=== PATIENT | male | born 1955 | race Caucasian/White ===

== ENCOUNTER → 2023-05-18 10:41 | Outpatient (REF) | payer MEDICARE, SELFPAY | LOC: HWRAD 10:41 | PROVIDERS: ATTENDING PHYSICIAN Family Medicine | DX: M19.042 Primary osteoarthritis, left hand (principal) | CPT/HCPCS: 73110; 73130 ==

== ENCOUNTER → 2023-07-26 07:19 | Outpatient (REF) | payer MEDICARE, SELFPAY | LOC: MRI 3T 07:19 | PROVIDERS: ATTENDING PHYSICIAN Student in an Organized Health Care Education/Training Program; FAMILY PHYSICIAN Family Medicine | DX: M25.551 Pain in right hip (principal) | CPT/HCPCS: 73721 ==

== ENCOUNTER → 2023-10-07 10:08 | Outpatient (REF) | payer MEDICARE, SELFPAY | LOC: HWRCS 10:08 | PROVIDERS: ATTENDING PHYSICIAN Internal Medicine Cardiovascular Disease; FAMILY PHYSICIAN Family Medicine | DX: I35.1 Nonrheumatic aortic (valve) insufficiency (principal) | CPT/HCPCS: 93306 ==

== ENCOUNTER 2023-12-15 08:08 | Day surgery (SDC) | payer MEDICARE, SELFPAY ==
[2023-12-15] VITALS (9 sets, daily range): BP systolic 120–163; BP diastolic 76–89; BMI 31.4
--- NOTE | 2023-12-15 08:18 | ITS.CL.CATH ---
Licensed Reactor Operator - Catheterization
Cardiac Catheterization
Procedure Report:
LEFT HEART CATHETERIZATION
Date of Procedure: December 15, 2023
Referring: Mary Lu PA-C, Umesh Huddleston
PROCEDURES:
1. Left heart catheterization, coronary angiogram.
2. Ultrasound-guided access
INDICATION: Kevin is a 68-year-old gentleman with past medical history of hypertension, hyperlipidemia, exercise-induced asthma, paroxysmal supraventricular tachycardia, history of basal cell carcinoma of skin, severe aortic stenosis who is being
referred for a left heart catheterization coronary angiogram to rule out obstructive CAD as part of workup for AVR. He has been recently complaining of episodes of palpitations and significant dyspnea on exertion along with occasional chest
discomfort. Most recent echocardiogram from October 07, 2023 showed LVEF of 60 to 65%, severe aortic stenosis with mean transaortic gradient of 46 mmHg, aortic valve area 1.0, moderate AI and PA pressure of 45 mmHg.
ACCESS: Right radial artery, 6 Uzbek sheath, under ultrasound guidance.
We briefly attempted to perform a right heart catheterization by wiring the right brachial IV in place however given wire would not advance smoothly, this access was aborted.
HEMODYNAMICS : (mmHg)
AO (s/d) : 150/78
LV (s/d) : 183/15
LVEDP : 28
Mean transaortic gradient invasively was 40 mmHg, consistent with severe aortic stenosis.
CORONARY FINDINGS
DOMINANCE: Right
LEFT MAIN: The left main artery is a large-caliber vessel which gives rise to the left anterior descending artery and the left circumflex artery. There is minimal luminal irregularities.
LEFT ANTERIOR DESCENDING: The left anterior descending artery is a small to medium caliber vessel which gives rise to 2 major diagonal branches as it courses through the anterior interventricular groove towards the apex. There is minimal luminal
irregularities.
CIRCUMFLEX: The left circumflex artery is a medium caliber vessel which gives rise to 2 major obtuse marginal branches. There is minimal luminal irregularities.
RIGHT CORONARY ARTERY: The right coronary artery is a large-caliber, dominant vessel which gives rise to the right posterior descending artery and the right posterolateral system. There is minimal luminal irregularities.
SEDATION:51 minutes of procedural sedation was utilized. An independent medical registrar was present to assist with and help manage the patient's level of consciousness and physiologic status.
RADIATION SUMMARY: Fluoro Time (min): 8.2, Dose (mGy): 666.21, DAP (Gy.cm2) : 47.2
Closure Device: Vascular band over right radial artery, 10 cc of air.
CONCLUSIONS
1. No obstructive coronary artery disease.
2. Severe symptomatic aortic stenosis with invasive mean transaortic gradient of 40 mmHg.
3. Significantly elevated LVEDP at 28 mmHg.
RECOMMENDATIONS
1. Wean radial protocol.
2. Aggressive management of cardiovascular risk factors.
3. Continue further workup including a CT angiogram of chest, abdomen and pelvis per TAVR protocol and CT surgery consult with plan for a heart team discussion at the next structural heart meeting once all the workup is completed to discuss role of
TAVR versus SAVR.
Copy to: Mary Lu PA-C, Umesh Huddleston
Loyda Perdomo MD, [facility], [facility]
[2023-12-15] MEDS: NSS 290 ML IV (09:51)
[2023-12-15] MEDS: LOW STRENGTH ASPIRIN 324 MG PO (09:52)
[2023-12-15] MEDS: LASIX 20 MG IV (14:29)
--- NOTE | 2023-12-15 15:18 | CONSULT.STRU ---
Consultation
-
Date/Time Consultation Requested: 12/15/2023
Date/Time Consultation Performed: 12/15/2023
Requesting Provider: Loyda Perdomo MD
Performing Provider: DEANGELO Shepherd
Reason for Consultation: Aortic stenosis, evaluate TAVR vs SAVR
Patient History
Physicians
Family Physician: Ana Lilia Casper
Outpatient Electron Beam Welder Setter: Umesh Huddleston
Primary Electron Beam Welder Setter: Umesh Huddleston
History of Present Illness
Patient is a very pleasant 68yo male with known history of aortic stenosis. He recently was seen at [place] in the ER for evaluation of tachycardia. He states they were not convinced he was not in afib based on his Apple watch so started him on
Eliquis. He states he has not felt any palpitations since but does have a history of them in the past. He does state he has had intermittent chest discomfort since the episode. It comes and goes with no particular aggravating or relieving factors.
It does not radiate to arm or jaw. No SOB with it. He denies peripheral edema, PND, orthopnea, lightheadedness. He does describe some WANG with mild activity..
Reviewed the pathophysiology of aortic stenosis with the patient. Explained the treatment options of SAVR and TAVR. Explained the TAVR evaluation process including follow up BMP, CT TAVR scan, CT surgery consult and Heart Team discussion. Provided
with script for BMP next week, script and appointment for CT TAVR, Consult appointment with Dr. Eric and a copy of the TAVR education booklet with contact information. Allowed for and answered questions.
Past Medical History
Past Medical History: Arrhythmias (PSVT), Asthma ( mild intermittent, no recent use of rescue inhaler), Atrial Fib (unclear, recently diagnosed and started on Eliquis), Cancer (h/o basal cell), WANG, GERD, Hypercholesterolemia, Valvular Disease
(Severe , moderate AI, Mild TR, mild MR) and Other (DDD/DJD lumbar spine)
Past Surgical History
Past Surgical History: Other (lipoma removed left flank, left knee arthroscopic surgery, Right great toe surgery, excision of basal cell cancer)
Dental History
Regular dental care
Family History
Mother: at Age (60yo, melanoma)
Father: at Age (46yo, cancer)
Social History
Alcohol: Occasional
Drug: None
Tobacco: Non-Smoker
Personal:
Living: With Spouse
Employment: Retired (research environmental scientist at [employer]
Allergies
Allergy/AdvReac Type Severity Reaction Status Date / Time
No Known Allergies Allergy Verified 12/15/23 09:07
Home Medications
�Medication �Instructions �Recorded �Confirmed �Type
apixaban 5 mg tablet (Eliquis) 5 mg PO BID 12/15/23 12/15/23 History
cyclosporine 0.05 % eye drops 1 drp ophthalmic (eye) Q12H 12/15/23 12/15/23 History
(Restasis MultiDose)
fenofibrate micronized 134 mg 134 mg PO DAILY 12/15/23 12/15/23 History
capsule
furosemide 20 mg tablet (Lasix) 20 mg PO DAILY #30 tabs 12/15/23 Rx
metoprolol succinate 25 mg 25 mg PO DAILY 12/15/23 12/15/23 History
tablet,extended release 24 hr
rosuvastatin 5 mg tablet 5 mg PO DAILY 12/15/23 12/15/23 History
STS%
STS %: 0.88%
Review of Systems
-
History Source: Patient
General: Reports No Symptoms
HEENT: Reports No Symptoms
Respiratory: Reports WANG and Asthma (history of but no recent issues)
Cardiac: Reports Chest Pain (Since November- dull ache, non-radiating, not activity related) and Palpitations; Denies Nausea, Vomiting, Diaphoresis or Edema
Abdomen/GI: Reports Reflux; Denies Abdominal Pain, Nausea, Vomiting or Diarrhea
: Reports No Symptoms
Musculoskeletal: Reports Other (Bulgin discs in his back that cause right leg pain)
Skin: Reports No Symptoms
Neurological: Reports No Symptoms; Denies CVA, TIA, Headaches or Syncope
Vascular: Reports No Symptoms
Physical Exam
Vital Signs
Temp 98.1 F 12/15/23 09:00
Temp route: Oral 12/15/23 09:00
Pulse 61 12/15/23 14:53
Resp Rate 22 12/15/23 14:53
Blood pressure 151/80 12/15/23 14:53
Blood pressure extremity used: Left upper arm 12/15/23 14:45
Position: Sitting 12/15/23 14:45
MAP (cuff-Todd Monitor) 100 12/15/23 14:53
SaO2 97 12/15/23 14:53
Oxygen Mode of Delivery Room air 12/15/23 14:45
Can the patient verbally communicate their pain? Yes 12/15/23 14:45
Actual Weight 96.5 kg 12/15/23 08:18
Body Mass Index (BMI) 31.4 12/15/23 08:18
Labs
12/07/2023:
H/H: 15.8/47.8
BUN/Creat: 26/03.18
GFR: 67
Diagnostic Studies
Echocardiogram 10/07/2023:
CONCLUSIONS
Normal left ventricular size and systolic function. Mild concentric left
ventricular hypertrophy. No regional wall motion abnormalities are seen. LV
ejection fraction is 60-65% by Plummer's method of discs. Normal diastolic
function.
Normal right ventricular size and function.
Severe aortic stenosis with peak/mean gradients across the aortic valve of
82/46 mmHg, respectively. The aortic valve by the Continuity equation is
calculated at 1.0 cm2.
Moderate, eccentric aortic regurgitation.
Mild tricuspid regurgitation. Estimated pulmonary artery pressure of 45 mmHg
assuming a right atrial pressure of 3 mmHg.
Compared to prior study dated 03/04/2022, aortic stenosis is now severe,
previous peak/mean aortic valve gradients were previously 49/26 mmHg.
Indications:
Nonrheumatic aortic (valve) stenosis
Rhythm: Sinus with occasional PVCs
Portable Study: No
Technical Quality: Good
Contrast: None
BP: 138 / 80
PROCEDURE
A complete Transthoracic Echocardiogram was performed utilizing two-dimensional
evaluation with color flow and spectral Doppler analysis.
FINDINGS
Left Ventricle
Normal left ventricular size and systolic function. Mild concentric left
ventricular hypertrophy. No regional wall motion abnormalities are seen. LV
ejection fraction is 60-65% by Plummer's method of discs. Normal diastolic
function.
Right Ventricle
Normal right ventricular size and function.
Left Atrium
Indexed LA volume is within top normal range (15-34 mL/m2).
Right Atrium
Normal right atrial size.
Mitral Valve
Mitral valve opens normally with mild mitral regurgitation.
Aortic Valve
Calcified aortic valve with restricted leaflet excursion. Severe aortic
stenosis with peak/mean gradients across the aortic valve of 82/46 mmHg,
respectively. The aortic valve by the Continuity equation is calculated at 1.0
eccentric aortic regurgitation.
Tricuspid Valve
Tricuspid valve opens normally with mild tricuspid regurgitation. Estimated
pulmonary artery pressure of 45 mmHg assuming a right atrial pressure of 3
mmHg.
Pulmonic Valve
Pulmonic valve opens normally with trace pulmonic regurgitation.
Pericardium\\Pleura
No pericardial or pleural effusions seen.
Aorta
Normal size aortic root and normal size aorta. The aortic arch is normal in
caliber.
Other Finding
The IVC is of normal size and demonstrates normal respiratory variation.
Interatrial septum is intact with no evidence of shunting by color flow
Doppler.
MEASUREMENTS (Male / Female) Normal Values
2D ECHO
LV Diastolic Diameter PLAX 5.1 cm 4.2 - 5.9 / 3.9 - 5.3 cm
LV Systolic Diameter PLAX 3.3 cm
IVS Diastolic Thickness 1.2 cm 0.6 - 1.0 / 0.6 - 0.9 cm
LVPW Diastolic Thickness 1.1 cm 0.6 - 1.0 / 0.6 - 0.9 cm
LV Relative Wall Thickness 0.5
LVOT Diameter 2.1 cm
LV Ejection Fraction MOD BP 64.1 % >= 55 %
LV Stroke Volume MOD BP 75.0 cm3
LV Cardiac Index MOD BP 2360.9 cm3/min
LV Stroke Volume MOD 4C 61.0 cm3
LV Stroke Volume 4C AL 63.8 cm3
LV Stroke Volume MOD 2C 83.0 cm3
LV Stroke Volume 2C AL 86.4 cm3
LA Area 4C View 20.8 cm2 <= 20 cm2
LA Length 4C 5.6 cm
LA Volume 62.0 cm3 18 - 58 / 22 - 52 cm3
LA Volume Index 34.9 cm3/m2 16 - 34 cm3/m2
Ascending Aorta Diameter 3.4 cm
Aortic Arch Diameter 2.9 cm
DOPPLER
AV Peak Velocity 403.0 cm/s
AV Peak Gradient 65.0 mmHg
AV Mean Gradient 33.0 mmHg
AV Velocity Time Integral 85.1 cm
AI Peak Velocity 336.3 cm/s
AI Peak Gradient 45.2 mmHg
AI Pressure Half Time 506.3 ms
LVOT Peak Velocity 147.0 cm/s
LVOT Peak Gradient 8.6 mmHg
LVOT Velocity Time Integral 29.5 cm
LVOT Stroke Volume 102.2 cm3
LVOT Stroke Volume Index 46.6 ml/m2 empty
LVOT Cardiac Index 3216.4 cm3/min\\m2
AV Area Cont Eq vti 1.2 cm2
AV Area Cont Eq pk 1.3 cm2
MR Peak Velocity 647.0 cm/s
MR Peak Gradient 167.4 mmHg
Mitral E Point Velocity 91.3 cm/s
Mitral A Point Velocity 59.2 cm/s
Mitral E to A Ratio 1.5
LV E' Lateral Velocity 10.4 cm/s
Mitral E to LV E' Lateral Ratio 8.8
LV E' Septal Velocity 9.5 cm/s
Mitral E to LV E' Septal Ratio 9.7
Pulmonary Vein S/D Ratio 1.1
TR Peak Velocity 296.0 cm/s
TR Peak Gradient 35.0 mmHg
PV Peak Velocity 208.0 cm/s
PV Peak Gradient 17.3 mmHg
Cardiac Catheterization 12/15/2023:
No significant coronary artery disease
Exam
General: Well Developed, Well Nourished, No Apparent Distress and Comfortable
HEENT: Normocephalic, Moist Mucous Membranes, PERRLA and EOMI
Neck: Trachea Midline
Respiratory: Clear; Negative Wheezes, Crackles or Rhonchi
Cardiac: S1/S2, Regular Rhythm and Murmur (Grade I/)
GI: Soft, Non Tender, Non Distended and Normal Bowel Sounds
Rectal: Deferred by Provider
Skin: Warm and Dry
Neuro: AO x 3, No Motor Deficits and Nonfocal/Grossly Intact
Extremities: Pulses (palpable pedal pulses); Negative Lower Level Edema
Psych: Calm
Assessment / Plan
-
Procedure Type:�Isolated AVR
PERIOPERATIVE OUTCOME ESTIMATE %
Operative Mortality 0.888%
Morbidity & Mortality 8.68%
Stroke 0.675%
Renal Failure 1.73%
Reoperation 3.35%
Prolonged Ventilation 3.66%
Deep Sternal Wound Infection 0.062%
Long Hospital Stay (>14 days) 3.69%
Short Hospital Stay (<6 days)* 45.6%
Severe Aortic stenosis:
����������� Continue evaluation for TAVR vs SAVR
����������� BMP next week at [facility]
����������� CT TAVR scan 12/27 929 at
����������� CT surgery consult with Dr. Eric 01/05/2024929
����������� Heart team discussion at [facility]
Dental Clearance
Data Reviewed
-
EKG: Report Reviewed by me (no conduction issue noted)
Publishing Manager: Discussed with Physician
Echo: Report Reviewed by me
Labs: Labs Reviewed by me
Old Records: Reviewed (Cardiology office notes)
Total Time Spent with Patient (in minutes): 35
== END 2023-12-15 16:53 | disposition home or self-care (01) ==
LOC: CATH 08:08
PROVIDERS: ATTENDING PHYSICIAN Internal Medicine Interventional Cardiology; FAMILY PHYSICIAN Family Medicine; OTHER PHYSICIAN Internal Medicine Cardiovascular Disease
DX: I08.2 Rheumatic disorders of both aortic and tricuspid valves (principal); I47.10 Supraventricular tachycardia, unspecified; R06.09 Other forms of dyspnea; R07.89 Other chest pain; I10 Essential (primary) hypertension; E78.00 Pure hypercholesterolemia, unspecified; K21.9 Gastro-esophageal reflux disease without esophagitis; Z85.828 Personal history of other malignant neoplasm of skin; Z79.01 Long term (current) use of anticoagulants
CPT/HCPCS: 99152; 99153; C1894; 93458; Q9967

== ENCOUNTER → 2023-12-28 09:12 | Outpatient (REF) | payer OTHER, SELFPAY | LOC: RAD 09:12 | PROVIDERS: ATTENDING PHYSICIAN Nurse Practitioner Adult Health; FAMILY PHYSICIAN Family Medicine | DX: I35.0 Nonrheumatic aortic (valve) stenosis (principal) | CPT/HCPCS: 74174; 75572; Q9967 ==

== ENCOUNTER 2024-02-17 09:26 | Inpatient (IN) | payer OTHER, SELFPAY ==
[2024-02-09 08:20] VITALS: BMI 30.1
[2024-02-09 09:00] LABS: Urine Albumin Negative (Neg - Trace); Urine Bilirubin Negative (Negative); Urine Character Clear (Clear); Urine Color Yellow; Urine Glucose Negative (Negative); Urine Ketone Negative (Negative); Urine Leukocyte Negative (Negative); Urine Nitrite Negative (Negative); Urine Occult Blood Negative (Negative); Urine Urobilinogen Negative (Neg - 1+)
[2024-02-09 09:07] LABS: % Basophils 0.7 % (0-2); % Eosinophils 3.1 % (0-6); % Immature Granulocytes 0.1 % (0-0.5); % Lymphocytes 26.4 % (20.5-51.1); % Monocytes 7.5 % (1.7-9.3); % Neutrophils 62.2 % (42.2-75.2); Absolute Basophils 0.1 10^3/uL (0-0.2); Absolute Eosinophils 0.2 10^3/uL (0-0.7); Absolute Lymphocytes 1.8 10^3/uL (1.2-3.4); Absolute Monocytes 0.5 10^3/uL (0.1-0.6); Absolute Neutrophils 4.2 10^3/uL (1.4-6.5); Hemoglobin 15.5 g/dL (13.0-18.0); Mean Corp Hgb Conc. 35.2 g/dL (33.0-37.0); Mean Corpuscular Hgb 29.7 pg (27.0-31.0); Mean Corpuscular Volume 84.3 fL (80.0-94.0); Mean Platelet Volume 10.5 fL (7.4-10.4); Nucleated Red Blood Cells % 0 % (-); Platelet Count 223 10^3/uL (130-400); Red Blood Cell Count 5.22 10^6/uL (4.70-6.10); Red Cell Dist. Width 12.6 % (11.5-14.5); White Blood Cell Count 6.8 10^3/uL (4.8-10.8)
[2024-02-09 09:12] LABS: INR 0.97; PT 13.4 Sec (11.4-14.6)
[2024-02-09 09:13] LABS: APTT 30.3 Sec (23.4-35.0)
--- NOTE | 2024-02-09 10:02 | HPS.HSE ---
Family Physician
-
Family Physician: Ana Lilia Casper
Communications Coordinator: Umesh Huddleston
Chief Complaint
-
Symptomatic Aortic stenosis/ Pre-operative history and physical
History of Present Illness
Kevin Leroy is a 68-year-old male with known progressive aortic valve stenosis. His most recent echocardiogram demonstrated a peak/mean gradient of 82/46 mmHg, respectively. NILESH was calculated to be 1.0 and peak velocity was just over 4.0 m/s.
His left heart catheterization revealed no obstructive coronary disease. An invasive mean gradient was 40 with an elevated LVEDP of 28 mmHg. From a symptomatology standpoint, he describes SOB with basic activities such as walking up stairs with
laundry and changing positions. In comparison to 1 year ago, he feels it has become more apparent. He also complains of intermittent, non-radiating midsternal chest pain. He cannot pinpoint any aggravating or relieving factors. It 'just comes and
goes'. He was also recently seen at a [place] facility for evaluation of tachycardia, at that time it was inconclusive whether he was in atrial fibrillation or not and so he was started on Eliquis for anticoagulation. He remains on the Eliquis still
now. He does state he has occasional palpitations. Denies PND, orthopnea or peripheral edema.
Reviewed with Mr. Leroy the risks of TAVR including bleeding, PPM and stroke. Confirmed he is a full rescue as stated in Dr. Eric's consult. Reviewed medications and he is instructed to take his last dose of Eliquis on 02/14/2024. He will then
take ASA 324mg on 02/14 and 81mg 02/15 and 02/16 prior to his 0930 arrival to the hospital. He is aware he will receive a phone call next to confirm arrival time. Allowed for and answered questions.
Medical History
Past Medical History
Past Medical History: Reports Arrhythmia (brief episode of afib document, PSVT), Asthma (mild-intermittant), GERD, Hypercholesterolemia, Valvular Disease (mild MR, mod AI, severe , mild TR) and Other (Neuropathy, back pain, DDD/DJD lumbar spine,
h/o BCC, IBS)
Past Surgical History: Reports Other (lipoma removed left flank, left knee arthroscopic surgery, Right great toe surgery, excision of basal cell cancer)
Social History
Tobacco: Non-smoker
Alcohol: Occasional
Drug: None
Personal:
Living: With Family
Employment: Retired ([employer] at [employer])
Family History
Family History: Cancer
Allergies / Home Medications
Allergies reflects when Allergies were last updated in [facility].
Home Medications with original date entered in [facility]
Allergy/Medication List:
Allergies:
NKDA
Medications:
Crestor 5mg daily
Eliquis 5mg BID
Fenofibrate micronized 134mg daily
furosemide 20mg daily
Toprol XL 25mg daily
MVI daily
Restasis 0.05% 1 drop in affected eye Q12H
Review of Systems
-
History Source: Patient
Constitutional: Denies Fever or Weight Gain
EENT: Reports No Symptoms
Respiratory: Reports Other (WANG)
Cardiac: Reports Chest Pain (occasionally, mid sternum, no aggravating or relieving factors, non-radiating, not associated with any other symptoms) and Palpitations (intermittent ); Denies Syncope
Abdomen/GI: Reports No Symptoms; Denies Abdominal Pain, Nausea, Vomiting or Diarrhea
: Reports No Symptoms; Denies Dysuria, Frequency, Urgency or Bleeding
Musculoskeletal: Reports No Symptoms; Denies Edema
Skin: Reports No Symptoms
Neurological: Reports No Symptoms; Denies Dizzy or Headache
Endocrine: Reports No Symptoms
Hematologic/Lymphatic: Reports No Symptoms; Denies Bleeding or Bruising
Psych: Reports No Symptoms and Calm
Physical Exam
Physical Exam
General: Well Developed, Well Nourished, No Apparent Distress and Comfortable
HEENT: NormoCephalic, Moist mucous membranes and PERRLA
Respiratory: Clear and Non Labored Respirations; No Wheezes, Rales or Rhonchi
Cardiac: S1/S2, Regular Rhythm and Murmur (Grade II/ systolic); No Peripheral Edema
Breast: Deferred by me
GI: Soft, Non Tender, Non Distended and Normal Bowel Sounds
Rectal: Deferred by Provider
Genito-urinary: Deferred by me
Musculoskeletal: No Edema and Normal Gait & Station
Skin: Warm and Dry
Neuro: AO x 3 and No Motor Deficits
Psych: Calm and Intact Judgment/Insight
Data Reviewed
-
Diagnostic Radiology: Report Reviewed by me (No acute disease)
CT Scan: Report Reviewed by me (reviewed TAVR measurements and confirmed sizing)
Medical Tests (Nuc Med, Echo, EKG etc): Report Reviewed by me (EKG-no conduction issues, SR)
Lab Data: Labs Reviewed by me
Old Records: Reviewed (consult notes for CT surgery and cardiology)
Impression/Plan
-
IMPRESSION:
Severe, symptomatic aortic stenosis
PLAN:
-TF-TAVR utilizing a 29mm S3 Resilia valve as discussed and decided on by the Heart team in the shared decision making meeting.
-POD #1/#30 Echocardiogram
-Cardiac rehab consult
-Resume Eliquis as directed post procedure and stop aspirin
-Follow up with Dr. Huddleston
Laboratory Results
-
Laboratory Data
02/09/24 08:39
02/09/24 08:39
PT 13.4 Sec (11.4-14.6) 02/09/24 08:39
INR 0.97 02/09/24 08:39
APTT 30.3 Sec (23.4-35.0) 02/09/24 08:39
Total Bilirubin 0.7 mg/dl (0.2-1.3) 02/09/24 08:39
Direct Bilirubin 0.2 mg/dl (0.0-0.4) 02/09/24 08:39
AST 33 U/L (17-59) 02/09/24 08:39
ALT 33 U/L (0-50) 02/09/24 08:39
Alkaline Phosphatase 44 U/L (38-126) 02/09/24 08:39
Total Protein 7.6 g/dl (6.3-8.2) 02/09/24 08:39
Albumin 4.7 g/dl (3.5-5.0) 02/09/24 08:39
[2024-02-09 10:14] LABS: ALT (SGPT) 33 U/L (0-50); AST (SGOT) 33 U/L (17-59); Albumin 4.7 g/dl (3.5-5.0); Alkaline Phosphatase 44 U/L (38-126); Blood Urea Nitrogen 19 mg/dl (9-20); Calcium 9.4 mg/dl (8.4-10.2); Carbon Dioxide 25 mmol/L (22-30); Chloride 103 mmol/L (98-107); Direct Bilirubin 0.2 mg/dl (0.0-0.4); Estimated Creatinine Clearance 62 ml/min; Glucose 134 mg/dl (70-99); Glycohemoglobin (HgbA1c) 6.3 % (4.0-5.6); Potassium 4.3 mmol/L (3.5-5.1); Sodium 143 mmol/L (135-145); Total Bilirubin 0.7 mg/dl (0.2-1.3); Total Protein 7.6 g/dl (6.3-8.2); eGFR 59.47
--- NOTE | 2024-02-09 10:14 | CM ---
Met with Mr. Leroy in [facility]'s. He states prior to admission he resides with his spouse in a two story home with two steps to enter. He states he has a full flight of steps to get to bedroom/full bathroom. He states he has a powder room on the
first floor. He states prior to admission he was independent with ambulation and adls. He states he does not have any DME in the home. He states he has a prescription plan. He states his spouse will be home to assist in his care if needed. The
discharge plan is to return home with his spouse and home visit by the Transitional Care Nurse when medically stable.
We reviewed pre-op and post-op routines. We reviewed the shower instructions. He has the soap, written instructions and the TAVR educational Booklet. We also reviewed restrictions including lifting and driving restrictions. We discussed a home
visit by the Transitional Care Nurse. He is agreeable to a home visit, The plan is for TAVR on February.
[2024-02-17] VITALS (22 sets, daily range): BP systolic 98–168; BP diastolic 49–91
--- NOTE | 2024-02-17 11:01 | W.CVOR.SURPR ---
CVOR Surgeon Immed Pre Op
-
I have examined this patient prior to performance of the scheduled procedure.
The patient's condition is unchanged from the time of the dictated/written History and
Physical and the patient is able to undergo the scheduled procedure.
TF TAVR Valve
Full Rescue
[2024-02-17 12:41] LABS: ACT-LR - POC 287 Seconds (116-155)
--- NOTE | 2024-02-17 13:02 | W.PN.CT.SURG ---
CT Surgery Operative Note
-
OPERATIVE REPORT
Preoperative Diagnosis: Severe aortic valve stenosis, symptomatic
Postoperative Diagnosis: Same
Procedure(s) Performed: Right trans femoral TAVR with a 29 mm Resilia Brown TAVR valve
Date of Procedure: 02/17/2024
Comorbidities:
1. Severe aortic stenosis, symptomatic
2. Acute on chronic congestive systolic diastolic heart failure with volume overload, LVEDP pre-TAVR was 25 mmHg
3. Atrial tachycardia versus atrial fibrillation on chronic anticoagulation
Cardiac Surgeon: Lew Eric MD, MS
Epic Analyst: Loyda Perdomo MD
Anesthesia: Conscious Sedation and Local Analgesia
EBL: 100cc
Products: none
Implant: 29 mm Brown ARYAN TAVR valve, Jesse, SN: [id number]
Indication(s) for Procedures: 68-year-old male with symptomatic severe aortic stenosis. Multidisciplinary team discussion as well as shared decision making was to pursue transcatheter intervention given his age and good size annulus. CT-TAVR
protocol revealed acceptable anatomy for TAVR access and implantation.
Start time: 1215hrs
Deployment time: 1241hrs
End time: 1256hrs
Radiation Dose (mGy): 419.32
DAP (cm2.Gy): 38.7327
Fluoroscopy time (minutes): 7.4
Contrast volume (ml): 83
TAVR gradient (mmHg): 3-4mmHg
Heparin Dose: 7600units
Protamine Dose: 30mg
Final Valve Positionin/10
Findings: Preoperative LVEF was 60% and was 60% following TAVR without inotropic support. Function was overall normal without regional wall motion abnormalities or dyskinesia. The aortic valve was well seated without detectable PVL and mean gradient
across the new valve was 3-4mmHg. following deployment of the valve, he was in accelerated junctional rhythm. It was unclear whether he was in heart block or just an accelerated junctional above his [place]hal[place] sinus bradycardia. There was successful
placement of 29mm TAVR valve without acute complications. We ultimately decided to leave the femoral venous sheath and temporary pacing wire in place. His LVEDP pre-TAVR was 25 and slightly greater on some measurements. This indicated acute on
chronic congestive systolic and diastolic heart failure with volume overload.
Access:
1. Device -right common femoral artery, perclose x 2
2. Pigtail -left common femoral artery [+ 6Fr angioseal]
3. Transvenous Pacer -left common femoral vein
Description of Procedure: The patient was taken to the r and d lab technician. Their identity and procedure to be performed were verified and they were positioned supine on the r and d lab technician table. Induction via conscious sedation. The patient was then prepped and
draped from chin to thigh in a sterile fashion. A preoperative time-out was performed with all members of the team present. Arterial and venous access was performed using fluoroscopy and ultrasound guidance with micropuncture and Seldinger
technique. Two perclose devices were used on the device side followed by access to the aorta with a stiff wire to facilitate E-sheath placement. Heparin was given. A stiff straight wire and AL-1 catheter was used to cross the aortic valve. An LVEDP
was measured here. The stiff wire was exchanged for an extra stiff coiled tip wire. The valve was prepped and mounted on to the device carrier. An ACT of >250 was achieved. We verified x 3 that the valve was mounted in the correct orientation with
the skirt of the valve directed toward the tip of the device carrier. We advanced the device into the descending thoracic aorta where the valve was them mounted onto the balloon under fluoroscopy. The device was flexed and advanced over the arch
into the root and positioned across the aortic valve. Contrast fluoroscopy was used to visualize the prosthesis across the valve and to guide positioning. A pigtail catheter in the RCC as used as a guide. We aimed to have the bottom of the device
marker at the annular hinge point. The device sheath was pulled back. We performed a quick pre-deployment time out. The pacer was turned on and had capture. Blood pressure fell accordingly, angiography was done to verify the intended final placement
and the valve was deployed with 5 seconds of rapid pacing to nominal volume. The balloon was deflated and the pacer was turned off. We had recovery of vitals. The device carrier was unflexed and positioned back in the descending thoracic aorta. A
transthoracic echocardiogram was performed. The device was removed from the E-Sheath maintaining wire access followed by removal of the E-sheath as we cinched down the perclose devices. There was acceptable hemostasis. The pigtail was withdrawn into
the descending/abdominal and completion aortogram with runoff run-off angiography was performed. There was no stenosis or dissection of bilateral iliofemoral systems. There was acceptable hemostasis of bilateral groins and manual pressure was held
following wire removal. Low dose protamine was administered after checking another ACT.
All instrument, sponge, and needle counts were confirmed to be correct x 2 at the end of the operation. The patient was transferred to the cardiac intensive care unit in stable condition.
I, Dr. Lew Eric, was present, scrubbed for, and performed all critical elements of this procedure.
Lew Eric MD
Cardiothoracic Surgeon
[facility]
This operative dictation was created using the [employer] dictation system. Please excuse any grammatical, typographical, or 'sound alike' errors
--- NOTE | 2024-02-17 13:07 | ITS.CL.TAVR ---
Addendum entered and electronically signed by Loyda Perdomo MD 02/17/24 15:40:
Addendum:
A 5 Fr. pigtail catheter was then advanced to the proximal ascending aorta / right aortic cusp where angiography was performed in multiple angles to define the co-planar angle that was most appropriate valve deployment (RACHNA 5/CAU 10)
Loyda Perdomo MD, [facility], [facility]
Original Note:
Flaker Tender - TAVR Report
TAVR PRocedure
Procedure Report:
TRANSCATHETER AORTIC VALVE REPLACEMENT
Date of Procedure: February 17, 2024
Referring: Umesh Huddleston
Operators: Drs. Loyda Perdomo and Lew Eric
PROCEDURE PERFORMED:
1. Successful placement of 29 mm Brown Kodak S3 aortic valve via right common femoral approach.
PREPROCEDURE NYHA CLASS: II
DESCRIPTION OF PROCEDURE: The patient was referred for assessment of severe symptomatic aortic stenosis and following a comprehensive evaluation it was felt that transcatheter aortic valve replacement (TAVR) would be the most appropriate treatment.
Informed consent was obtained prior to the procedure. A 'time-out' was called and the procedural plan was verbally confirmed by anesthesia, surgery, perfusion, and supervisor laboratory animal facility staff.
Arterial and venous access site were obtained in the left common femoral artery and vein using ultrasound guidance and micropuncture technique. 6 Fr. sheaths were inserted.
A 5 Fr. transvenous pacing wire was advanced to the right ventricle where excellent pacing thresholds were obtained.
A 5 Fr. pigtail catheter was then advanced to the proximal ascending aorta / right aortic cusp where angiography was performed in multiple angles to define the co-planar angle that was most appropriate valve deployment ([ ]/[ ]).
Ultrasound guidance was then used to obtain arterial access in the right common femoral artery and a 6 Fr. sheath was inserted. Angiography was performed and the arteriotomy site appeared appropriate for preclosure with two Perclose devices. An 8
Fr sheath was then inserted back into the common femoral artery over a J-tipped guidewire. An AL1 catheter was positioned in the proximal descending aorta. An Extra Stiff 0.035' J-tip wire was inserted to provide extra-support to facilitate the
Brown eSheath delivery. The 16 Fr. Brown eSheath was advanced in the descending thoracic aorta.
An AL1 catheter was advanced through the Brown eSheath over a 0.035' J-tip guide wire. The AL1 catheter was positioned just above the aortic valve. A 0.035' Straight tip wire probed the aortic valve and crossed the stenotic leaflets. The AL1
was then advanced to the mid left ventricle with invasive LV end-diastolic pressure significantly elevated at 25 mmHg. An Amplatz Extra-stiff wire with a generous curved tip was then positioned in the left ventricular apex. A 29 mm Brown Kodak
S3 valve was brought to the table and the orientation of the valve on the balloon delivery system was confirmed by all operators. The Kodak S3 valve was advanced through the eSheath and into the proximal descending thoracic aorta. The Kodak S3
valve was centered on the delivery balloon and the entire system was retroflexed as it crossed the aortic arch. The Kodak S3 delivery system was then advanced across the stenotic valve and the 29 mm Kodak S3 valve was deployed during rapid
pacing. The valve deployment was uneventful. Transthoracic echocardiographic images post valve deployment revealed minimal aortic insufficiency with excellent position of the aortic prosthesis.
The Brown balloon and delivery system were then removed. The Brown sheath was removed and the Perclose knots were advanced to the arteriotomy site resulting in excellent hemostasis.
Fluoro Time: 7.4 min, Dose: 419.32 mGy, DAP : 38.7 Gy.cm2
CONCLUSIONS:
1. Severe symptomatic aortic stenosis. Successful deployment of a 29 mm Kodak S3 valve with minimal aortic insufficiency post procedure
2. Successful arteriotomy closure with 2 Perclose devices.
3. Acute on chronic diastolic heart failure with elevated LVEDP at 25 mmHg
Copy to: Umesh Huddleston
Loyda Perdomo MD, FACC, [facility]
[2024-02-17] MEDS: LEVOPHED 250 IV (13:20)
[2024-02-17] MEDS: NSS 500 VEN SHEATH (13:46)
--- NOTE | 2024-02-17 14:00 | W.PN.UPDATE ---
Update Note
Progress Note Update
Reviewed Mr. Leroy with the heart team in the preTAVR SDM meeting and confirmed a 29mm S3 Resilia via right TF access. Patient will resume Eliquis post TAVR. LVEDP 25mmHg. #29mmS3 Resilia (serial# [id number]) successfully deployed via right
transfemoral access. Post implant MG 3mmHg.
--- NOTE | 2024-02-17 15:00 | PTCARENOTE ---
Patient received from lab support tech AOx3. SB HR 53. B/L groin dressing are soft and dry. Oxygen at 2 liters NC, POX 97%. Left transvenous sheath in place connected to pacing box, setting HR 40, MA 20. Patient lying flat in bed, precautions reviewed, call
varner in reach
--- NOTE | 2024-02-17 15:17 | CM ---
Patient in OR today for planned TAVR.
CM following for DC planning needs.
Antic. DC to home w/ CT Transitional Care RN.
CM to follow.
--- NOTE | 2024-02-17 15:53 | PTCARENOTE ---
titrated off Levophed, BP 129/71, HR 54, POX 95% on room air
--- NOTE | 2024-02-17 17:05 | PTCARENOTE ---
Pacing wire discontinued at 1645. Left venous sheath in place with KVO
--- NOTE | 2024-02-17 17:15 | W.PN.UPDATE ---
Update Note
Progress Note Update
No temporary pacing noted since PACU. Remains with HR 50s-60s (sinus). Discussed with Lyndsey Perdomo/Jeaneth. Temporary wire removed and left femoral sheath remains if access needed tonight. Pacing pads intact.
[2024-02-17] MEDS: ANCEF 5 IV (18:33)
[2024-02-17] MEDS: ROXICODONE 5 MG PO (20:11)
[2024-02-17] MEDS: RESTASIS 0.05% OPHTHALMIC EMULSION 1 DROPS OPHTH (20:12)
--- NOTE | 2024-02-17 20:25 | PTCARENOTE ---
Pt rec'd on CBR with left venous sheath present with IV NSS at 10 ml/hr infusing. Drsg dry and intact with no hematoma present. right femoral site also with DDI without hematoma. pedal Pulses strong b/l. Sinus on telemetry, no bundle noted.
Pt with hx of chronic lower back pain usually treated with nsaids. Pain rated 5-6. Towel rolled under lower back for support. Roxicodone 5 mg also given. Pt with call varner within reach.
--- NOTE | 2024-02-17 21:28 | PTCARENOTE ---
B/p 165/89 Spoke with TERRENCE Cervantes ordered.
[2024-02-17] MEDS: NORVASC 2.5 MG PO (21:31)
--- NOTE | 2024-02-17 22:35 | PTCARENOTE ---
Pt remains at 2 out of 10 lower back discomfort. Assisted pt to lie partially on side with pillow to lower back. venous sheath remains in place with no active bleeding or hematoma noted. IV Nss via sheath infusing at 10 ml/hr. Pt remains sinus 69.
B/p 160/82. Norvasc 2.5 mg given earlier per PA order.
[2024-02-18] MEDS: ROXICODONE 5 MG PO ×2 (00:03→04:13)
[2024-02-18 03:54] VITALS: BP 186/78
--- NOTE | 2024-02-18 04:18 | PTCARENOTE ---
Pt still with c/o back pain (chronic at home). medicated with Roxicodone at this time. am labs drawn. B/l groins remain dry without hematoma. Left venous sheath in place with Nss infusing at 10 ml/hr. sinus on telemetry with 1 short run of bigeminy
5 beats in total.
[2024-02-18 05:06] LABS: Hematocrit 42.3 % (39.0-52.0); Hemoglobin 14.8 g/dL (13.0-18.0); Mean Corpuscular Hgb 29.7 pg (27.0-31.0); Mean Corpuscular Volume 84.9 fL (80.0-94.0); Mean Platelet Volume 10.2 fL (7.4-10.4); Platelet Count 186 10^3/uL (130-400); Red Blood Cell Count 4.98 10^6/uL (4.70-6.10); Red Cell Dist. Width 12.6 % (11.5-14.5); White Blood Cell Count 10.2 10^3/uL (4.8-10.8)
[2024-02-18] MEDS: NORVASC 5 MG PO (05:13)
[2024-02-18 05:32] LABS: Blood Urea Nitrogen 17 mg/dl (9-20); Calcium 8.8 mg/dl (8.4-10.2); Carbon Dioxide 25 mmol/L (22-30); Chloride 99 mmol/L (98-107); Estimated Creatinine Clearance 72 ml/min; Glucose 129 mg/dl (70-99); Potassium 4.1 mmol/L (3.5-5.1); Sodium 135 mmol/L (135-145); eGFR > 60.00
[2024-02-18 06:00] VITALS: BMI 29.7
--- NOTE | 2024-02-18 07:15 | W.PN.CT ---
Today's Communication / Plan
-
-pod #1
-no significant issues overnight
-in nsr overnight with PVCs/ brief ventricular bigeminy (felt palpitations). Holding Toprol d/t junctional rhythm with new RBBB post TAVR (both resolved)
-d/c L groin sheath
-hypertensive- started Norvasc
-Echo today
-current meds (Crestor, Tricor). Will need to resume Eliquis
-encourage IS
Assessment / Plan
-
- Sever symptomatic - s/p Right trans femoral TAVR with a 29 mm Resilia Brown TAVR valve on 02/17/24, pod #1
- Acute on chronic congestive systolic diastolic heart failure with volume overload, LVEDP pre-TAVR was 25 mmHg
- Preoperative LVEF was 60% and was 60% following TAVR without inotropic support, no wma. The aortic valve was well seated without detectable PVL and mean gradient across the new valve was 3-4m
- Accelerated junctional with new RBBB postop
- Atrial tachycardia versus atrial fibrillation- on chronic anticoagulation with Eliquis
- HLD
- GERD
- IBS
Discussed patient care with: Nursing and Care Team
Subjective
-
Date of Service: February 18, 2024
Objective Data
-
PT 13.4 Sec (11.4-14.6) 02/09/24 08:39
INR 0.97 02/09/24 08:39
APTT 30.3 Sec (23.4-35.0) 02/09/24 08:39
Vital Signs
Vital Signs
Temp Pulse Resp BP Pulse Ox
98.5 F 68 20 165/89 96
02/17/24 22:22 02/17/24 21:15 02/17/24 22:22 02/17/24 21:15 02/17/24 22:22
CT Intake/Output/Weight
02/17/24 02/17/24 02/18/24
06:59 18:59 06:59
Intake Total 560 / 710 150 / 710
Output Total 1100 / 2400 1300 / 2400
Balance -540 / -1690 -1150 / -1690
SaO2: 96
Physical Exam
-
General: Awake and AOx3
Cardiovascular: Regular rate & rhythm, No Murmurs and No Rub
Respiratory: Clear
Incision: Other (groins are cdi, soft, nontender, no hematoma b/l. L groin sheath is in)
Extremities: No Edema
Data Reviewed
-
Lab Results: Results Reviewed
Medications: Active Meds Reviewed
Chest X-Ray: Report Reviewed and Image Reviewed
ECG: Report Reviewed and Image Reviewed
[2024-02-18 07:59] VITALS: BP 166/77
[2024-02-18 08:07] VITALS: BP 166/96
[2024-02-18] MEDS: TRICOR 145 MG PO (08:47)
[2024-02-18] MEDS: RESTASIS 0.05% OPHTHALMIC EMULSION 1 DROPS OPHTH (08:47)
[2024-02-18] MEDS: CRESTOR 5 MG PO (08:47)
--- NOTE | 2024-02-18 09:55 | W.DCSUMMARY ---
Discharge Summary
Discharge Data
Date of Admission: 02/17/24
Date of Discharge: 02/18/24
-
Pending Results: No
Hospital Course
Primary care physician: Ana Lilia Casper
Outpatient mechanical press operator: Lloyd Huddleston
Inpatient consultants: [facility]
Procedures:
1. TAVR
Primary Diagnosis:
1. Severe symptomatic nonrheumatic aortic stenosis
Secondary Diagnoses:
1. Acute on chronic congestive systolic diastolic heart failure with volume overload, LVEDP pre-TAVR was 25 mmHg
2. Atrial tachycardia versus atrial fibrillation on chronic anticoagulation
3. Herniated lumbar disc
HPI: 68-year-old male was electively admitted on 02/17/2024 for TAVR due to severe symptomatic nonrheumatic aortic stenosis.
Hospital course: Patient underwent a right transfemoral TAVR number 29 mm Brown valve procedure with Drs. Lew Eric and Loyda Davis. Patient's rhythm was accelerated junctional after the procedure and a transvenous pacer wire was left in
place. The patient's rhythm remained sinus bradycardic in the 50s and the temporary pacing wire was removed. The left femoral sheath remained in place overnight. The patient maintained sinus rhythm throughout the night and the left femoral sheath
was removed on postoperative day #1. Per cardiology, a rhythm star monitor was ordered and will be followed by the cardiology team. The hemoglobin and creatinine remained stable. A predischarge echocardiogram reported an EF of 60-65%, AV
gradients of 22/11 mmHg, and no AI. Patient is deemed stable for discharge to home today.
Home medication changes:
Discharge Plan
-
Patient Disposition: Home (Routine Discharge)
Discharge Diagnosis/Procedures: TF-TAVR
Condition: Good
Diet: Low Cholesterol and 2 Gram Sodium
Activity: As tolerated
Driving Restrictions: No driving for 1 week
Bathing Restrictions: OK to Shower
Others Tests: Follow Up Echocardiogram: 03/23/2024 at 1pm at [facility]
Wound Care: Please do not apply lotions, creams or powders to groin areas. Please monitor groins for increased pain, swelling, redness or drainage. Notify your doctor if any occur.
Specialty Instructions: Weigh Daily- Call MD for wt gain/loss 3 lbs overnight/5 lbs in 1 week
Referrals:
CT Transitional Care Nurse [Outside] (The Cardiothoracic Transitional Care Nurse will call you to set up a visit in 1-2 days.)
[facility] [Outside] - 03/29/24 1:00 pm
(Cardiac Rehab Orientation appointment is on 03/29/24 1pm.
The Cardiac Rehab gym is located on the first floor of the [facility]ovascular [facility].)
Komal Munoz CRNP [Specified Professional Personl] - 03/27/24 9:00 am
Ana Lilia Casper MD [Family Provider] -
Prescriptions:
New
acetaminophen 325 mg Tablet
650 mg PO Q4HPRN PRN (Reason: [place], mild pain, or fever >101F) Qty: 0 0RF
Continued
fenofibrate micronized 134 mg Capsule
134 mg PO DAILY
metoprolol succinate 25 mg Tablet Extended Release 24 Hr
25 mg PO DAILY
rosuvastatin 5 mg Tablet
5 mg PO DAILY
Eliquis 5 mg Tablet
5 mg PO BID
Restasis MultiDose 0.05 % Drops
1 drp OPHTHALMIC (EYE) Q12H
furosemide [Lasix] 20 mg tablet
20 mg PO DAILY
Discharge Orders:
Discharge Patient (As Directed); Ordered 02/18/24
Ordered By: Pat Jaramillo
Care Plan Goals
Care Plan Goals:
Problem: Readiness for enhanced knowledge related to diagnosis and treatment plan
Goal: Understand your diagnosis and treatment plan needs, including medications if applicable.
Instructions: Know your diagnosis, underlying causes and treatment plan options, including medications if applicable. Consult with your health care team to learn about your diagnosis and treatment plan, including medications if applicable.
Discharge Date and Time
Print Language: GREEK
[2024-02-18 10:06] VITALS: BP 144/88; BP 151/78; PULSE 80; O2SAT 96
--- NOTE | 2024-02-18 11:04 | PTCARENOTE ---
pt sr on the monitor, hr in the 80s, vss. pt c/o back declined pain medication at this time.
venous sheath pulled at 0805 hemostasis 0818. dressing cdi, no hematoma.
pt oob at 0930 to chair and tolerated well. left groin cdi. pt offers no complaints at this time. call varner within reach.
--- NOTE | 2024-02-18 12:51 | CM ---
CM following for DC planning needs.
Met w/ patient at bedside. Pt. feels well, is hopeful for DC today. Has transport home.
Plan is for home w/ CT Transitional Care RN.
No further needs identified.
[2024-02-18] MEDS: TOPROL XL 25 MG PO (12:59)
--- NOTE | 2024-02-18 14:06 | W.PN.UPDATE ---
Update Note
Progress Note Update
Patient ordered to have rhythm star home monitoring. Device given to patient to apply after discharge. Reviewed with patient how to apply, charge, report symptoms and send monitor back after the 14 days. Allowed for and answered questions
--- NOTE | 2024-02-18 15:42 | PTCARENOTE ---
d/c instructions read to pt and pt verbalized understanding. iv and tele removed. pt left w/ belongings from room, heart monitor and d/c instructions. pt left via wheelchair with staff member.
--- NOTE | 2024-02-18 15:51 | W.PN.ANS.POP ---
Anesthesia Post Operative
- Anesthesia Post Op Note
Vital Signs Stable-See Nursing Note: Yes
Airway Patent: Yes
Adequate Pain Control: Yes
Change in Mental Status: No
Current Postoperative Nausea & Vomiting: No
Anesthesia Complications: No
General Anesthetic Recall: No
Unplanned Admission: No
Post Op Hydration Adequate: Yes
- -
Pt awake and alert. OOB to chair, nurse at bedside.
--- NOTE | 2024-02-18 16:01 | W.PN.CARDCBS ---
Today's Communication / Plan
-
-Severe symptomatic - s/p Right trans femoral TAVR with a 29 mm Resilia Brown TAVR valve on 02/17/24, pod #1
-no significant issues overnight. Back in normal sinus rhythm.
-Plan to resume Toprol and will arrange for an outpatient classroom monitor upon discharge
-Bilateral groins appear to be stable, soft with dressing in place which is clean, dry and intact
-hypertensive- started Norvasc
-Echo today showing stable appearing valve without significant PVL, no pericardial effusion.
-Stable for discharge from a cardiac standpoint.
Impression / Plan
-
Assessment / Plan
Outpatient Resolution Specialist: Dr. Umesh Huddleston
- Severe symptomatic - s/p Right trans femoral TAVR with a 29 mm Resilia Brown TAVR valve on 02/17/24, pod #1
- Acute on chronic congestive systolic diastolic heart failure with volume overload, LVEDP pre-TAVR was 25 mmHg
- Preoperative LVEF was 60% and was 60% following TAVR without inotropic support, no wma. The aortic valve was well seated without detectable PVL and mean gradient across the new valve was 3-4m
- Accelerated junctional with new RBBB postop.
- Atrial tachycardia versus atrial fibrillation- on chronic anticoagulation with Eliquis
- HLD
- GERD
- IBS
Progress Note - Resolution Specialist
Subjective
Date of Service: February 18, 2024
Doing well this morning without any complaints.
Objective
Labs:
02/18/24 04:04
02/18/24 04:04
Labs
Hgb 14.8 g/dL (13.0-18.0) 02/18/24 04:04
Hct 42.3 % (39.0-52.0) 02/18/24 04:04
Plt Count 186 10^3/uL (130-400) 02/18/24 04:04
PT 13.4 Sec (11.4-14.6) 02/09/24 08:39
INR 0.97 02/09/24 08:39
APTT 30.3 Sec (23.4-35.0) 02/09/24 08:39
Sodium 135 mmol/L (135-145) 02/18/24 04:04
Potassium 4.1 mmol/L (3.5-5.1) 02/18/24 04:04
BUN 17 mg/dl (9-20) 02/18/24 04:04
Creatinine 1.0 mg/dL (0.7-1.3) 02/18/24 04:04
Glucose 129 mg/dl (70-99) H 02/18/24 04:04
Vital Signs and I&O:
Vital Signs
Temp Pulse Resp BP Pulse Ox
98.2 F 83 20 161/81 97
02/18/24 10:59 02/18/24 12:59 02/18/24 10:59 02/18/24 12:59 02/18/24 10:59
Vital Signs
Temp Pulse Resp BP Pulse Ox
98.2 F 83 20 161/81 97
02/18/24 10:59 02/18/24 12:59 02/18/24 10:59 02/18/24 12:59 02/18/24 10:59
Intake & Output
02/16/24 02/17/24 02/18/24 02/19/24
06:59 06:59 06:59 06:59
Intake Total 830 / 1310 480 / 480
Output Total 3200 / 3800 600 / 600
Balance -2370 / -2490 -120 / -120
Physical Exam
Physical Exam
Physical Exam
-
General: Awake and AOx3
Cardiovascular: Regular rate & rhythm, No Murmurs and No Rub
Respiratory: Clear
Incision: Other (groins are cdi, soft, nontender, no hematoma b/l.)
Extremities: No Edema
== END 2024-02-18 15:43 | disposition home or self-care (01) | DRG 266 ==
LOC: IVU 09:26
PROVIDERS: Nurse Practitioner; ADMITTING PHYSICIAN Thoracic Surgery (Cardiothoracic Vascular Surgery); CONSULT PHYSICIAN Internal Medicine Cardiovascular Disease; FAMILY PHYSICIAN Family Medicine; OTHER PHYSICIAN Internal Medicine Cardiovascular Disease
PROC: 02RF38Z Replacement of Aortic Valve with Zooplastic Tissue, Percutaneous Approach (ICD-10-PCS; 2024-02-17)
DX: I35.0 Nonrheumatic aortic (valve) stenosis (principal); I50.43 Acute on chronic combined systolic (congestive) and diastolic (congestive) heart failure; I47.19 Other supraventricular tachycardia; J45.20 Mild intermittent asthma, uncomplicated; K21.9 Gastro-esophageal reflux disease without esophagitis; M47.816 Spondylosis without myelopathy or radiculopathy, lumbar region; G62.9 Polyneuropathy, unspecified; K58.9 Irritable bowel syndrome, unspecified; I34.0 Nonrheumatic mitral (valve) insufficiency; E78.1 Pure hyperglyceridemia; I36.1 Nonrheumatic tricuspid (valve) insufficiency; M51.26 Other intervertebral disc displacement, lumbar region; I48.91 Unspecified atrial fibrillation; I45.10 Unspecified right bundle-branch block; Z79.01 Long term (current) use of anticoagulants; Z79.899 Other long term (current) drug therapy
CPT/HCPCS: 93308; 33361; 36415; 71045; 71046; 80048; 80053; 81003; 82248; 83036; 83880; 85025; 85027; 85347; 85610; 85730; 86850; 86900; 86901; 87070; 93005; 93306; 93321; 93325; C1760; C1769; C1894; Q9967

== ENCOUNTER 2024-02-22 12:11 | Inpatient (IN) | payer OTHER, SELFPAY ==
[2024-02-22] VITALS (12 sets, daily range): BP systolic 113–160; BP diastolic 73–96; BMI 29.4; BMI 29.8
[2024-02-22] MEDS: LOPRESSOR 25 MG PO (10:45)
[2024-02-22] MEDS: LOPRESSOR 5 MG IV (10:47)
[2024-02-22 10:49] LABS: % Basophils 0.7 % (0-2); % Eosinophils 2.6 % (0-6); % Immature Granulocytes 0.3 % (0-0.5); % Lymphocytes 22.9 % (20.5-51.1); % Monocytes 8.8 % (1.7-9.3); % Neutrophils 64.7 % (42.2-75.2); Absolute Basophils 0.1 10^3/uL (0-0.2); Absolute Eosinophils 0.2 10^3/uL (0-0.7); Absolute Monocytes 0.8 10^3/uL (0.1-0.6); Absolute Neutrophils 5.8 10^3/uL (1.4-6.5); Hematocrit 44.3 % (39.0-52.0); Mean Corp Hgb Conc. 36.1 g/dL (33.0-37.0); Mean Platelet Volume 10.3 fL (7.4-10.4); Nucleated Red Blood Cells % 0 % (-); Platelet Count 228 10^3/uL (130-400); Red Blood Cell Count 5.34 10^6/uL (4.70-6.10); Red Cell Dist. Width 12.5 % (11.5-14.5); White Blood Cell Count 8.9 10^3/uL (4.8-10.8)
[2024-02-22 11:06] LABS: Blood Urea Nitrogen 22 mg/dl (9-20); Carbon Dioxide 27 mmol/L (22-30); Chloride 102 mmol/L (98-107); Estimated Creatinine Clearance 65 ml/min; Glucose 136 mg/dl (70-99); Magnesium 2.2 mg/dl (1.6-2.3); Potassium 4.8 mmol/L (3.5-5.1); Sodium 140 mmol/L (135-145); eGFR > 60.00
--- NOTE | 2024-02-22 11:10 | ED.GENMED ---
History of Present Illness
General
Chief Complaint: Heart Rate Problem
Source: patient and records
Time Seen by Provider: 02/22/24 09:51
History of Present Illness
History of Present Illness:
68-year-old male with past medical history of paroxysmal atrial fibrillation, aortic stenosis status post TAVR on February 16 and discharged from this facility on February 17 complications presenting to the emergency department for further
evaluation after he started experiencing palpitations and shortness of breath intermittently on Wednesday morning, continuous since Wednesday afternoon with his Apple Watch telling him he was in atrial fibrillation. Patient states that the paroxysmal
atrial fibrillation started back in November of this year but he spontaneously converted out of this prior to any procedures or medications being given to him at a separate facility at that time. Patient states since his discharge from the
hospital last week he has been feeling quite well and without any fevers or infectious symptoms, cough, chest pain or any other concerns. Patient does take Eliquis 5 mg twice daily however he does note he was off of this medication 3 days prior to
the procedure. No other concerns presently.
Past History
Past History
ED Past Medical History: Arrthythmia, GERD and Valvular disease
ED Past Surgical History: Orthopedic and Other
Social History
Tobacco: Non-smoker
Alcohol: None
Drug: None
Personal:
Living: with family
Review of Systems
Review of Systems
All Other Systems: ROS reviewed and negative except as documented in HPI and ROS
Phy Exam
Physical Exam
Physical Exam:
GENERAL: Alert , in no apparent distress
HEAD: NCAT
EYE: clear conjunctiva
NECK: Supple
ENT: o/p clr, mmm.
CARDIAC: Irregularly irregular, tachycardic
LUNGS: Clear breath sounds bilaterally, no acute respiratory distress,
NEUROLOGICAL: Alert and oriented
SKIN: Warm and dry, skin intact.
MUSCULOSKELETAL: No edema, well perfused.
PSYCH: Normal and appropriate interaction.
Scores
[id number] Score for Afib Stroke Risk
Age in Years (65=0, 65-74=1, >/=75=2): 65-74
Sex (Female=+1): Male
Congestive Heart Failure History (Yes=+1): No
Hypertension History (Yes=+1): No
Stroke/TIA/Thromboembolism History (Yes=+2): No
Vascular Disease History (Yes=+1): No
Diabetes Mellitus (Yes=+1): No
Score: 1
Anticoagulation Recommendations: Consider anticoagulation (as validated in nonvalvular fib)
Heart Failure Risk
Heart Failure Risk Score: Not Applicable
Heart Score for Chest Pain Patients
STEMI patient?: Not applicable
Withdrawal Assessment of Alcohol
Withdrawal Assessment Completed?: Not applicable
Course
Orders/Labs/Results
Orders:
Orders
02/22/24 09:43
EKG [Electrocardiogram (*1)] Urgent
Reason for Study: Tachycardia
EKG- Treatment ONCE
02/22/24 Lunch
Cholesterol Lowering
At Your Request: Full Participation
Does patient need a safe tray?: No
02/22/24 10:30
Metoprolol [Lopressor] 25 mg PO NOW STA
Metoprolol [Lopressor] 5 mg IV NOW STA
02/22/24 10:41
Basic Metabolic Panel Urgent
Complete Blood Count/With Diff Urgent
Magnesium Urgent
TSH Urgent
02/22/24 11:33
CARDIOLOGY CONSULT Routine
Consulting Provider: Lloyd Huddleston
Was physician already notified: Yes
02/22/24 11:46
Admit/Transfer Patient As Directed
Co-Sign Provider:
Level of Care: Inpatient admission
Assign to:: Telemetry
Physician / Group: orlando collins
Diagnosis: Rapid fib
Reason for Telemetry: Medication for Arrhythmia
Date to Stop Telemetry: 02/24/24
Time to Stop Telemetry: 11:00
Reason for Hospitalization: Rapid fib
Expected length of stay greater than two midnights?: Yes
ELOS- Estimated Length of Stay in days: 2
I certify the patient meets the requirements for IP care: Yes
PRN Pain Medication Management As Directed
May give lesser potent ordered pain med per pt: Yes
preference::
Protocol:: Medication orders for pain may be administered in a
manner that supports deferring to patient preference
when the pt is:
- Requesting an ordered lesser potent pain medication.
Least to most potent pain medications are defined
as: acetaminophen < NSAID < tramadol < opioids
(morphine, oxycodone, hydromorphone).
- Requesting a lesser dose of the same medication IF
ORDERED.
- Requesting a less intrusive route of administration
if both routes are prescribed by the provider (PO <
IV).
02/22/24 11:48
Code Status As Directed
Resuscitation Status: Full Code
02/24/24 11:00
DC Protocol for Telemetry ONCE
Abnormal Lab Results
02/22/24
10:41
Absolute Monos (auto) 0.8 H 10^3/uL
(0.1-0.6)
BUN 22 H mg/dl
(9-20)
Glucose 136 H mg/dl
(70-99)
02/22/24 10:41
02/22/24 10:41
Vital Signs
Initial and Last Documented VS:
Initial Vital Signs
Temp Pulse Resp BP Pulse Ox
97.9 F 91 16 160/96 98
02/22/24 09:40 02/22/24 09:40 02/22/24 09:40 02/22/24 09:40 02/22/24 09:40
Last Documented Vital Signs
Temp Pulse Resp BP Pulse Ox
97.9 F 95 17 113/73 95
02/22/24 09:40 02/22/24 12:42 02/22/24 12:30 02/22/24 12:00 02/22/24 12:30
MDM/Problems Addressed
Differential Diagnosis Includes:
Cardiac arrhythmia, less concern for PE, no signs to suggest infection
MDM/Problems Addressed:
68 year old male presenting to the ED for palpitations and mild SOB, apple watch noting afib. EKG done in triage confirms afib with RVR. Will discuss potential managements with cardiology, cardioversion vs meds. Disposition pending
Chronic conditions affecting care: Arrhythmia
Acute Exacerbation and/or Progression of Chronic Illness: Arrhythmia
*Pulse Oximetry
Patient hypoxic: no
*EKG
Heart Rate: 118
Rate: tachycardiac
Rhythm: a-fib
[place]: normal axis
Ischemia: no ischemia
*Direct Marketing Coordinator Interpretation
Rate: tachycardiac
Heart Rate: 135
Rhythm: a-fib
*Critical Care Note
Total Time (30-74mins, 75-104mins- exclusive of procedures): 30
comment:
Critical care statement: A total of 30 minutes of critical care time was provided for this patient. This includes management of unstable vital signs, evaluation of the patient at bedside, reviewing the patient's pertinent medical records, discussion
with consultants, review of old EKGs and review of pertinent medical records. This time with separate from time utilized to perform the aforementioned documented procedures
Data Reviewed
Review of Other/Old Records Reveals: Labs, Records and Discharge Summary
Source: patient
Patient Management
Discussion with other providers: Hospitalist and Newspaper Editor Managing
Escalation/DeEscalation of care consider admission/obs:
Case d/w cardiology who does not want cardioversion done in ED due to patient holding his eliquis 3 days prior to procedure being done. Recommends offering patient IV and PO meds and if symptomatically improved can go home and have outpatient follow
up/JOEL/cardioversion if does not convert or admit for JOEL and cardioversion in the morning.
Patient and son (who is a certified bench jeweler technician) prefer admission. Will still treat in ED with 5mg lopressor IV and 25mg PO. Hospitalist team accepts for continued eval and treatment.
Following meds, patient HR improved to low 90's
ED Attending Note
-
Portions of this chart may have been created with voice recognition software.� Occasional wrong word or��sound alike� substitutions may have occurred due to the inherent limitations of voice recognition software.
Discharge Plan
Departure
Patient Disposition: Admit
Date of Disposition: 02/22/24
Time of Disposition: 11:10
Presentation/result/management discussed w/ accepting MD/DO: Hospitalist
Discharge Problem:
Atrial fibrillation with rapid ventricular response
Interventions
Interventions:
*Risk Screen - Suicide Last Done: 02/22/24 09:40
*General Assessment Last Done: 02/22/24 09:40
*Neglect/Abuse Screening Last Done: 02/22/24 09:40
ED- Cardiac Assessment Last Done: 02/22/24 11:29
ED- Pulmonary Assessment Last Done: 02/22/24 11:30
--- NOTE | 2024-02-22 11:31 | HPS.HSE ---
Family Physician
-
Family Physician: Ana Lilia Casper
Chief Complaint
-
Shortness of breath, palpitation
History of Present Illness
68-year-old male with a past medical history of severe status post TAVR on 02/17/2024, paroxysmal atrial fibrillation on eliquis, hyperlipidemia, and GERD presents with intermittent shortness of breath and palpitations since Wednesday. Patient
wears an Apple watch, and it read that he was in rapid atrial fibrillation on Wednesday, his rate went as high as 150. He then spontaneously converted to normal sinus rhythm. Today, he went back into atrial fibrillation. He reports feeling the
irregular heartbeats. Associated symptoms include palpitations, dyspnea with activity. He denies chest pain. No nausea, no vomiting. He did have some dizziness yesterday, that has since resolved. No fever.
Medical History
Past Medical History
Past Medical History: Reports Other
Additional Past Medical History:
Brief episode of afib document, PSVT, asthma (mild-intermittent), GERD, hypercholesterolemia, mild MR, mod AI, severe , mild TR, neuropathy, back pain, DDD/DJD lumbar spine, h/o BCC, IBS
Past Surgical History: Reports Other
Additional Past Surgical History:
TAVR, lipoma removed left flank, left knee arthroscopic surgery, Right great toe surgery, excision of basal cell cancer
Social History
Tobacco: Non-smoker
Alcohol: Occasional
Drug: None
Personal:
Living: With Family
Family History
Family History: Cancer
Allergies / Home Medications
Allergies reflects when Allergies were last updated in [employer] [facility].
Home Medications with original date entered in [employer] [facility]
Allergy/Medication List:
Allergies
Allergy/AdvReac Type Severity Reaction Status Date / Time
No Known Allergies Allergy Verified 02/22/24 09:40
Home Medications Table - record
�Medication �Instructions �Recorded �Confirmed
apixaban 5 mg tablet (Eliquis) 5 mg PO BID Blood Clot 12/15/23 02/22/24
Prevention/Tx
cyclosporine 0.05 % eye drops 1 drp BOTH EYES Q12H Eye Condition 12/15/23 02/22/24
(Restasis MultiDose)
fenofibrate micronized 134 mg 134 mg PO DAILY High Cholesterol 12/15/23 02/22/24
capsule
metoprolol succinate 25 mg 25 mg PO DAILY Heart 12/15/23 02/22/24
tablet,extended release 24 hr Disease/Condition
rosuvastatin 5 mg tablet 5 mg PO DAILY High Cholesterol 12/15/23 02/22/24
acetaminophen 325 mg tablet 650 mg (2 x 325 mg) PO Q4HPRN PRN 02/18/24 02/22/24
SALMERON, mild pain, or fever >101F #0
tabs
furosemide 20 mg tablet (Lasix) 20 mg PO DAILYPRN PRN SWELLING 02/18/24 02/22/24
[id number] ER 1 tab PO DAILYPRN PRN EAR PAINS 02/22/24 02/22/24
tab,ext.release
therapeutic multivitamin 1 tab PO DAILY 02/22/24 02/22/24
Review of Systems
-
A 12 point ROS was completed and negative except as noted: Yes
Physical Exam
Vital Signs
Vital Signs
Temp Pulse Resp BP Pulse Ox
97.9 F 83 20 114/85 97
02/22/24 09:40 02/22/24 11:00 02/22/24 11:00 02/22/24 11:00 02/22/24 11:30
Physical Exam
General: No Apparent Distress
HEENT: NormoCephalic, Anicteric and Moist mucous membranes
Respiratory: Clear
Cardiac: S1/S2 and Irregular Rhythm
GI: Soft, Non Tender, Non Distended and Normal Bowel Sounds
Musculoskeletal: No Clubbing, No Cyanosis and No Edema
Skin: Warm and Dry
Neuro: Awake, Alert and Oriented
Psych: Calm
Laboratory Results
-
02/22/24 10:41
02/22/24 10:41
Impression/Plan
-
68-year-old male with a past medical history of severe status post TAVR on 02/17/2024, CHF, paroxysmal atrial fibrillation on eliquis, hyperlipidemia, and GERD presents with intermittent shortness of breath and palpitations since Wednesday. Patient
wears an PROSimity watch, and it read that he was in rapid atrial fibrillation on Wednesday, his rate went as high as 150. He then spontaneously converted to normal sinus rhythm. Today, he went back into atrial fibrillation. He reports feeling the
irregular heartbeats. Associated symptoms include palpitations, dyspnea with activity. He denies chest pain. No nausea, no vomiting. He did have some dizziness yesterday, that has since resolved. No fever.
#Paroxysmal atrial fibrillation with rapid ventricular response
Status post IV and oral metoprolol tartrate in the ER
Continue metoprolol succinate 25 mg daily, Eliquis 5 mg twice a day
Consult cardiology, plan for JOEL CV tomorrow
#Severe status post TAVR on 02/17/2024
Monitor
#Hyperlipidemia
Continue statin
#GERD
#Chronic back pain
#Degenerative disc disease
#Irritable bowel syndrome
#Neuropathy
Not on any medications
DVT prophylaxis�Eliquis
Full code
Updated at bedside 02/21
Total time spent to see the patient on the floor, examine the patient, review data and lab results, discuss treatment plan with patient, nursing staff around 77 minutes.
--- NOTE | 2024-02-22 14:35 | CON.CAR ---
Addendum entered and electronically signed by Lloyd Huddleston MD 02/22/24 17:08:
I saw and examined the patient.
The Dynamics Ax Technical Architect's note was reviewed and I agree with the note.
Comment:
GEN: No distress, awake, Ox3
HEENT: supple, anicteric, mmm
LUNGS: CTA, no wheezes/rales
CV: Irreg, irreg, S1/S2, 1/6 syst LSB, no gallop
ABD: soft, BS+, NT/ND
EXT: No edema
NEURO: Gross non-focal
SKIN: No rash
Plan:
He has PMH of TAVR 02/17/24, PAF, chronic HFpeF, and lipids presents with palpitations for 2-3 days. He was found to be in paroxysmal Afib with elevated heart rates. He held his Eliquis for 3 days prior to TAVR last week.
He is now back on Elquis post TAVR.
Start Cardizem gtt. Increase Toprol 25mg po bid
Echo post TAVR 02/17 with normal LVEF and stable #29 TAVR, gradient 11mmHg, no AI
Plan npo with JOEL/CV in AM if remains in Afib
Original Note:
Consultation
Consultation Request
Date/Time Consultation Requested: 02/22/2024
Date/Time Consultation Performed: 02/22/2024
Requesting Provider: Kwabena Rust PA-C
Performing Provider: Sandra Cabrera PA-C for Dr. Huddleston
Reason for Consultation: atrial fibrillation w/ RVR
Medical History
-
History of Present Illness:
Patient is a 68-year-old male with past medical history significant for paroxysmal atrial fibrillation on chronic anticoagulation with Eliquis, severe aortic stenosis status post TAVR 02/17/2024, chronic heart failure with preserved ejection
fraction, hyperlipidemia who presents to emergency department 02/22/2024 with complaints of intermittent palpitations over the last 2-3 days. Patient's Apple Watch reported he was in atrial fibrillation. EKG in emergency department shows that
patient is in atrial fibrillation with accelerated ventricular response. Unfortunately patient was off anticoagulation for 3 days for TAVR. Patient was provided IV Lopressor in emergency department with temporary improvement of heart rate but
shortly after heart rates started to elevate and patient remains symptomatic.
PMH:
Severe symptomatic
s/p Right trans femoral TAVR with a 29 mm Resilia Brown TAVR valve on 02/17/24
Chronic heart failure with preserved ejection fraction
Post TAVR right bundle branch block
Paroxysmal atrial fibrillation - on chronic anticoagulation with Eliquis
HLD
GERD
IBS
Past Medical History
Past Medical History: Other (see HPI)
Past Surgical History: Cardiac (TAVR 02/17/2024), Orthopedic (Left knee ACL/meniscal repair, toe surgery) and Other (Inguinal hernia repair, skin cancer excision)
Social History
Tobacco: Non-Smoker
Alcohol: Occasional
Drug: None
Personal:
Living: With Family
Employment: Retired
Family History
Family History: Cancer (Both mother and father)
Allergies / Home Medications
Allergy/AdvReac Type Severity Reaction Status Date / Time
No Known Allergies Allergy Verified 02/22/24 09:40
�Medication �Instructions �Recorded �Confirmed �Type
apixaban 5 mg tablet (Eliquis) 5 mg PO BID Blood Clot 12/15/23 02/22/24 History
Prevention/Tx
cyclosporine 0.05 % eye drops 1 drp BOTH EYES Q12H Eye Condition 12/15/23 02/22/24 History
(Restasis MultiDose)
fenofibrate micronized 134 mg 134 mg PO DAILY High Cholesterol 12/15/23 02/22/24 History
capsule
metoprolol succinate 25 mg 25 mg PO DAILY Heart 12/15/23 02/22/24 History
tablet,extended release 24 hr Disease/Condition
rosuvastatin 5 mg tablet 5 mg PO DAILY High Cholesterol 12/15/23 02/22/24 History
acetaminophen 325 mg tablet 650 mg (2 x 325 mg) PO Q4HPRN PRN 02/18/24 02/22/24 Rx
[place], mild pain, or fever >101F #0
tabs
furosemide 20 mg tablet (Lasix) 20 mg PO DAILYPRN PRN SWELLING 02/18/24 02/22/24 History
[id number]-grhzutianlh-BK-PPA ER 1 tab PO DAILYPRN PRN EAR PAINS 02/22/24 02/22/24 History
tab,ext.release
therapeutic multivitamin 1 tab PO DAILY 02/22/24 02/22/24 History
Review of Systems
-
History Source: Patient
All other systems: Negative unless noted
Physical Exam
Vital Signs
Temp Pulse Resp BP Pulse Ox
97.9 F 95 17 113/73 95
02/22/24 09:40 02/22/24 12:42 02/22/24 12:30 02/22/24 12:00 02/22/24 12:30
GEN: No distress, awake, Ox3
HEENT: supple, anicteric, mmm
LUNGS: CTA, no wheezes/rales
CV: Irregularly irregular, tachycardic, S1/S2, no murmur, rub or gallop
ABD: soft, BS+, NT/ND
EXT: No edema, clubbing or cyanosis
NEURO: Gross non-focal
SKIN: No rash, warm, dry, pink
Lab Results
02/22/24 10:41
02/22/24 10:41
Impression / Plan
-
Digital Learning Platforms Manager: Dr. Umesh Huddleston
Impression:
Presents 02/22/2024 with palpitations/tachycardia
Atrial fibrillation with rapid ventricular response
Severe symptomatic
s/p Right trans femoral TAVR with a 29 mm Resilia Brown TAVR valve on 02/17/24
Chronic heart failure with preserved ejection fraction
Post TAVR right bundle branch block
Paroxysmal atrial fibrillation - on chronic anticoagulation with Eliquis
HLD
Exercise-induced asthma
PSVT
Basal cell skin cancer
GERD
IBS
Echocardiogram post TAVR 02/18/2024: EF of 60-65%, #29 Brown Resilia TAVR w/ peak/mean gradients of 22/11 mmHg, and no AI.
Left heart catheterization 12/15/2023: No obstructive coronary artery disease. Severe aortic stenosis with mean gradient 40
Plan:
-Presents 02/22/2024 with palpitations/tachycardia x 2 to 3 days. Patient underwent TAVR 02/17/2024 and felt great for 2 to 3 days after.
-EKG shows atrial fibrillation with rapid ventricular response which has been persistent over the last 48 hours. Unfortunately patient was off Eliquis for 3 days last week in preparation for TAVR procedure.
-Patient was provided IV Lopressor and oral lopressor in emergency department with temporary improvement of heart rate. However heart rates elevated shortly after getting IV Lopressor.
-Increase Toprol to 25 mg BID for rate control. Could consider starting Cardizem gtt if heart rates remained poorly controlled.
-Patient prefers to be admitted. Will make n.p.o. and plan for JOEL/cardioversion on 02/23/2024
-Continue Eliquis and Toprol for rate control
-TSH 2.60
-History of hyperlipidemia continue rosuvastatin and fenofibrate
HPI 02/22/2024:
Patient is a 68-year-old male with past medical history significant for paroxysmal atrial fibrillation on chronic anticoagulation with Eliquis, severe aortic stenosis status post TAVR 02/17/2024, chronic heart failure with preserved ejection
fraction, hyperlipidemia who presents to emergency department 02/22/2024 with complaints of intermittent palpitations over the last 2-3 days. Patient's Apple Watch reported he was in atrial fibrillation. EKG in emergency department shows that
patient is in atrial fibrillation with accelerated ventricular response. Unfortunately patient was off anticoagulation for 3 days for TAVR. Patient was provided IV Lopressor in emergency department with temporary improvement of heart rate but
shortly after heart rates started to elevate and patient remains symptomatic.
Data Reviewed
-
EKG: Report Reviewed by me, Discussed with Physician and Discussed with Patient
Labs: Labs Reviewed by me, Discussed with Physician and Discussed with Patient
[2024-02-22] MEDS: CARDIZEM 125 IV (17:40)
--- NOTE | 2024-02-22 19:43 | PTCARENOTE ---
Pt received from ED to [facility]. Pt oriented to room and call varner.
[2024-02-22] MEDS: ELIQUIS 5 MG PO (20:08)
[2024-02-22] MEDS: TOPROL XL 25 MG PO (20:08)
[2024-02-23 03:06] VITALS: BP 127/85
[2024-02-23 06:00] VITALS: BMI 29.8
[2024-02-23 07:30] VITALS: BP 123/77
--- NOTE | 2024-02-23 09:06 | W.PN.HOSP.TC ---
Today's Communication/Plan
-
Cleared by cardiology for discharge today
Assessment / Plan
Assessment / Plan
68-year-old male with a past medical history of severe status post TAVR on 02/17/2024, CHF, paroxysmal atrial fibrillation on eliquis, hyperlipidemia, and GERD presents with intermittent shortness of breath and palpitations since Wednesday. Patient
wears an Apple watch, and it read that he was in rapid atrial fibrillation on Wednesday, his rate went as high as 150. He then spontaneously converted to normal sinus rhythm. Today, he went back into atrial fibrillation. He reports feeling the
irregular heartbeats. Associated symptoms include palpitations, dyspnea with activity. He denies chest pain. No nausea, no vomiting. He did have some dizziness yesterday, that has since resolved. No fever.
#Paroxysmal atrial fibrillation with rapid ventricular response
Status post IV and oral metoprolol tartrate in the ER
Converted to normal sinus rhythm 02/21 at 5 PM
Cardioversion canceled
Cleared by cardiology for discharge on increased dose of Toprol XL 25 mg twice a day, continue Eliquis 5 mg twice a day
Follow-up with PCP and cardiology in the office in 1 week
#Severe status post TAVR on 02/17/2024
Monitor
#Hyperlipidemia
Continue statin
#GERD
#Chronic back pain
#Degenerative disc disease
#Irritable bowel syndrome
#Neuropathy
Not on any medications
DVT prophylaxis�Eliquis
Full code
Physical Exam
General: No acute distress
HEENT: Normocephalic, Atraumatic, EOMI, MMM
Respiratory: Clear to Auscultation bilaterally
Cardiac: Normal S1/S2, Regular Rate and Rhythm
GI: Soft, Nontender, Nondistended, Normal Bowel Sounds
Extremities: No Clubbing, Cyanosis, or Edema
Neuro: Nonfocal/Grossly Intact
Psych: Calm, Cooperative
Derm: No Visible lesions
Anticipated Discharge: Today
Subjective/Interval History
-
Date of Service: February 23, 2024
Patient converted to normal sinus rhythm yesterday at 5 PM. No more chest pain, shortness of breath, or palpitations. No fever, no vomiting.
Objective Data
-
Vital Signs:
Vital Signs
Temp Pulse Resp BP Pulse Ox
98.1 F 71 18 123/77 95
02/23/24 07:30 02/23/24 07:30 02/23/24 07:30 02/23/24 07:30 02/23/24 07:30
I&O
02/22/24 02/23/24 02/24/24
06:59 06:59 06:59
Intake Total 240 / 240
Balance 240 / 240
[2024-02-23] MEDS: ELIQUIS 5 MG PO (09:37)
[2024-02-23] MEDS: CRESTOR 5 MG PO (09:37)
[2024-02-23] MEDS: TRICOR 96 MG PO (09:37)
[2024-02-23] MEDS: TOPROL XL 25 MG PO (09:37)
--- NOTE | 2024-02-23 10:31 | CM ---
CM reviewed chart, patient seen bedside, initial assessment completed. Patient resides with his in a two story home, two steps to enter, full flight of steps to bedroom/full bath. Patient denies use of DME, VN, or SNF history. Patient reports
history of outpatient PT. Patient confirms PCP Ana Lilia Casper, pharmacy [facility], confirms prescription coverage, denies insecurities at home. Patient reports his will provide transportation home when stable for discharge. CM will continue to
follow for all discharge planning needs.
Plan; home with , no needs anticipated.
--- NOTE | 2024-02-23 10:54 | W.PN.CARDCBS ---
Addendum entered and electronically signed by Lloyd Huddleston MD 02/23/24 14:25:
I saw and examined the patient.
The Production Grip's note was reviewed and I agree with the note.
Comment:
GEN: No distress, awake, Ox3
HEENT: supple, anicteric, mmm
LUNGS: CTA, no wheezes/rales
CV: Reg, S1/S2, no murmur
ABD: soft, BS+, NT/ND
EXT: No edema
NEURO: Gross non-focal
SKIN: No rash
Plan:
He converted back into sinus rhythm. Continue Eliquis 5 mg p.o. twice daily and Toprol 25 mg p.o. twice daily.
Okay for discharge from cardiology standpoint.
Original Note:
Today's Communication / Plan
-
Toprol 25 mg twice daily
Eliquis 5 mg twice daily
Outpatient cardiac follow-up as arranged
Okay for discharge to home
Impression / Plan
-
Dispute Resolution Specialist: Dr. Umesh Huddleston
Impression:
Presents 02/22/2024 with palpitations/tachycardia
Atrial fibrillation with rapid ventricular response
Severe symptomatic
s/p Right trans femoral TAVR with a 29 mm Resilia Brown TAVR valve on 02/17/24
Chronic heart failure with preserved ejection fraction
Post TAVR right bundle branch block
Paroxysmal atrial fibrillation - on chronic anticoagulation with Eliquis
HLD
Exercise-induced asthma
PSVT
Basal cell skin cancer
GERD
IBS
Echocardiogram post TAVR 02/18/2024: EF of 60-65%, #29 Brown Resilia TAVR w/ peak/mean gradients of 22/11 mmHg, and no AI.
Left heart catheterization 12/15/2023: No obstructive coronary artery disease. Severe aortic stenosis with mean gradient 40
Plan:
-Patient with recent TAVR presented to [facility] with A-fib with rapid ventricular response
-Was started on IV Cardizem and fortunately converted to sinus rhythm overnight
-Continue Toprol 25 mg twice daily (increased dose this admission)
-Continue Eliquis 5 mg twice daily
-No issues with groin sites and hemoglobin stable at 16
-Continue activity restrictions as outlined post TAVR
-Outpatient cardiac follow-up has been moved up from 03/27 to 03/09.
-Okay for discharge to home from cardiac standpoint
-Discussed with hospitalist via [place] text
HPI 02/22/2024:
Patient is a 68-year-old male with past medical history significant for paroxysmal atrial fibrillation on chronic anticoagulation with Eliquis, severe aortic stenosis status post TAVR 02/17/2024, chronic heart failure with preserved ejection
fraction, hyperlipidemia who presents to emergency department 02/22/2024 with complaints of intermittent palpitations over the last 2-3 days. Patient's [employer] Watch reported he was in atrial fibrillation. EKG in emergency department shows that
patient is in atrial fibrillation with accelerated ventricular response. Unfortunately patient was off anticoagulation for 3 days for TAVR. Patient was provided IV Lopressor in emergency department with temporary improvement of heart rate but
shortly after heart rates started to elevate and patient remains symptomatic.
Progress Note - Dispute Resolution Specialist
Subjective
Date of Service: February 23, 2024
Feeling better. Back in sinus rhythm
Objective
Labs:
02/22/24 10:41
02/22/24 10:41
Labs
Hgb 16.0 g/dL (13.0-18.0) 02/22/24 10:41
Hct 44.3 % (39.0-52.0) 02/22/24 10:41
Plt Count 228 10^3/uL (130-400) D 02/22/24 10:41
Sodium 140 mmol/L (135-145) 02/22/24 10:41
Potassium 4.8 mmol/L (3.5-5.1) 02/22/24 10:41
BUN 22 mg/dl (9-20) H 02/22/24 10:41
Creatinine 1.1 mg/dL (0.7-1.3) 02/22/24 10:41
Glucose 136 mg/dl (70-99) H 02/22/24 10:41
Vital Signs and I&O:
Vital Signs
Temp Pulse Resp BP Pulse Ox
98.1 F 71 18 123/77 95
02/23/24 07:30 02/23/24 09:37 02/23/24 07:30 02/23/24 09:37 02/23/24 07:30
Vital Signs
Temp Pulse Resp BP Pulse Ox
98.1 F 71 18 123/77 95
02/23/24 07:30 02/23/24 09:37 02/23/24 07:30 02/23/24 09:37 02/23/24 07:30
Intake & Output
02/21/24 02/22/24 02/23/24 02/24/24
07:59 07:59 07:59 07:59
Intake Total 240 / 240
Balance 240 / 240
Physical Exam
Physical Exam
GEN: No distress, awake, alert, oriented x3
HEENT: supple, anicteric, mmm, EOMI
LUNGS: CTA bilaterally, no wheezes/rales
CV: Reg, S1/S2, no murmur
ABD: soft, BS+, NT/ND
EXT: No cyanosis, clubbing, edema
NEURO: Gross non-focal
SKIN: Warm, pink, dry. No rash
--- NOTE | 2024-02-23 11:33 | W.DCSUMMARY ---
Discharge Summary
Discharge Data
Date of Admission: 02/22/24
Date of Discharge: 02/23/24
-
Pending Results: No
Hospital Course
Discharge diagnosis:
Paroxysmal atrial fibrillation with rapid ventricular response
Severe aortic stenosis status post recent surgery
Hyperlipidemia
Chronic back pain
Gastroesophageal reflux disease
Consults: Cardiology
Procedures: None
Hospital course:
68-year-old male with a past medical history of severe status post TAVR on 02/17/2024, paroxysmal atrial fibrillation on eliquis, hyperlipidemia, and GERD who was admitted for rapid atrial fibrillation with rapid ventricular response. Patient
received oral and IV metoprolol tartrate in the ER. His rate improved. Patient was seen in conjunction with cardiology, who increased his Toprol XL from 25 mg daily to 25 mg twice a day. He spontaneously converted to normal sinus rhythm. He was
originally planned for JOEL cardioversion, this was subsequently canceled. He is medically stable and cleared by cardiology for discharge on his new dose of Toprol XL, 25 mg twice a day. He can continue his Eliquis as well. He needs to follow-up
with his primary care doctor in 1 week, and cardiology as directed.
Disposition: Home self-care
Discharge planning: Required 38 minutes
Discharge Plan
-
Patient Disposition: Home (Routine Discharge)
Discharge Diagnosis/Procedures: Atrial fibrillation with rapid ventricular response, now in normal sinus rhythm
Condition: Fair
Diet: Low Cholesterol
Activity: As tolerated
Driving Restrictions: As prior to admission
Activity Restrictions/Additional Instructions:
Follow-up with cardiology in the office as scheduled, and your primary care doctor in 1 week.
Referrals:
Irasema Chávez CRNP [Specified Professional Personl] - 03/09/24 7:40 am (Your cardiology appointment has changed. Please call with questions. )
Ana Lilia Casper MD [Family Provider] - in one week
Prescriptions:
Continued
fenofibrate micronized 134 mg Capsule
134 mg PO DAILY
rosuvastatin 5 mg Tablet
5 mg PO DAILY
Eliquis 5 mg Tablet
5 mg PO BID
Restasis MultiDose 0.05 % Drops
1 drp BOTH EYES Q12H
furosemide [Lasix] 20 mg tablet
20 mg PO DAILYPRN PRN (Reason: SWELLING)
acetaminophen 325 mg Tablet
650 mg PO Q4HPRN PRN (Reason: [place], mild pain, or fever >101F) Qty: 0 0RF
therapeutic multivitamin Tablet
1 tab PO DAILY
psitelaqs-[id number]-WD-[id number] Tablet Extended Release
1 tab PO DAILYPRN PRN (Reason: EAR PAINS)
Changed
metoprolol succinate 25 mg Tablet Extended Release 24 Hr
25 mg PO BID Qty: 60 0RF
Discharge Orders:
Discharge Patient (As Directed); Ordered 02/23/24
Ordered By: Dav Delgado
Discharge Date and Time
Discharge Date/Time: 02/23/24 13:04
Print Language: KAZAKH
[2024-02-23 12:06] VITALS: BP 153/78
== END 2024-02-23 13:04 | disposition home or self-care (01) | DRG 309 ==
LOC: 4 WEST ACU 12:11
PROVIDERS: Physician Assistant Medical; ADMITTING PHYSICIAN Family Medicine; CONSULT PHYSICIAN Internal Medicine Cardiovascular Disease; EMERGENCY PHYSICIAN Emergency Medicine; FAMILY PHYSICIAN Family Medicine
DX: I48.0 Paroxysmal atrial fibrillation (principal); I50.32 Chronic diastolic (congestive) heart failure; I35.0 Nonrheumatic aortic (valve) stenosis; J45.990 Exercise induced bronchospasm; G89.29 Other chronic pain; G62.9 Polyneuropathy, unspecified; K21.9 Gastro-esophageal reflux disease without esophagitis; K58.9 Irritable bowel syndrome, unspecified; E78.5 Hyperlipidemia, unspecified; I45.19 Other right bundle-branch block; Z79.01 Long term (current) use of anticoagulants; I47.10 Supraventricular tachycardia, unspecified; Z79.899 Other long term (current) drug therapy; Z85.828 Personal history of other malignant neoplasm of skin; Z95.2 Presence of prosthetic heart valve
CPT/HCPCS: 80048; 83735; 84443; 85025; 86803; 93005; 96374; 96375; 99291

== ENCOUNTER → 2024-03-23 12:48 | Outpatient (REF) | payer OTHER, SELFPAY | LOC: RCS 12:48 | PROVIDERS: ATTENDING PHYSICIAN Internal Medicine Cardiovascular Disease; FAMILY PHYSICIAN Family Medicine | DX: I35.0 Nonrheumatic aortic (valve) stenosis (principal); I35.1 Nonrheumatic aortic (valve) insufficiency; Z95.2 Presence of prosthetic heart valve | CPT/HCPCS: 93306 ==

== ENCOUNTER 2024-03-29 16:11 | Outpatient (RCR) | payer OTHER, SELFPAY | END 2024-03-29 23:59 | disposition home or self-care (01) | LOC: CRHB 16:11 | PROVIDERS: ATTENDING PHYSICIAN Internal Medicine Cardiovascular Disease | DX: Z95.4 Presence of other heart-valve replacement (principal) | CPT/HCPCS: 93797; 93798 ==